=== PATIENT | male | born 1985 | race Two or more races ===

== ENCOUNTER 2020-04-12 08:21 | Emergency (ER) | payer OTHER, BC ==
[~2020-04-12] VITALS: Ht 172.7 cm; Wt 77.3 kg
[2020-04-12 08:27] VITALS: BP 144/92
[2020-04-12] MEDS ORDERED: ketorolac tromethamine 15mg/ml inj. IM ONE (09:45)
[2020-04-12] MEDS ORDERED: LIDOcaine 5% patch TP STA (10:23)
[2020-04-12] MEDS ORDERED: LIDO700A32 TOP (10:25)
[2020-04-12] MEDS ORDERED: IBUP-1984 PO (10:25)
== END 2020-04-12 10:51 | disposition home or self-care (01) ==
LOC: ER 08:22
DX: S16.1XXA Strain of muscle, fascia and tendon at neck level, initial encounter (principal); M25.512 Pain in left shoulder; Z79.899 Other long term (current) drug therapy; V89.2XXA Person injured in unspecified motor-vehicle accident, traffic, initial encounter; Y93.89 Activity, other specified; Y92.488 Other paved roadways as the place of occurrence of the external cause; Y99.8 Other external cause status
CPT/HCPCS: 72050; 73030; 96372; 99284; J1885